=== PATIENT | male | born 1975 | race Caucasian/White ===

== ENCOUNTER → 2016-05-04 | Outpatient (CLI) | payer BC ==
[~2016-05-04] VITALS: Ht 182.9 cm; Wt 91.6 kg
[2016-05-04 14:11] VITALS: BP 116/77; PULSE 78; Ht 182.9 cm; Wt 91.6 kg
== END | disposition home or self-care (01) ==
LOC: C.NEUR 13:20
PROVIDERS: ATTEND Internal Medicine Pulmonary Disease
DX: G47.30 Sleep apnea, unspecified (principal)

== ENCOUNTER → 2016-05-18 | Outpatient (CLI) | payer BC ==
--- NOTE | 2016-05-20 16:50 | POLYSOMNOGRAPH REPORT ---
CLINICAL DATA: A 40-year-old male with BMI of 27.[address] Oneil with symptoms of obstructive sleep apnea with loud snoring which is severe and poor sleep quality. On the evening of 05/18/2016, a home sleep apnea test was performed using a iovation type 3 monitor. RECORDING RESULTS: Total recording time was 9.2 hours. The patient's estimated sleep time and monitoring time was 7.4 hours. RESPIRATORY DATA: Mild sleep apnea was documented. The ELOY was 7.2. There were 35 obstructive, 2 mixed, and 2 central apneic episodes. There were 14 hypopneic episodes. The longest respiratory event recorded was 40 seconds. OXIMETRY DATA: Very transient nocturnal hypoxemia was seen. Oxygen [place] was 82%. Mean saturation was 94%. Time below 89% was 1 minute. HEART RATE DATA: Heart rates ranged from 59 to 72 beats per minute. SNORING DATA: Loud snoring was recorded throughout the night. IMPRESSION: Mild sleep apnea/hypopnea with an ELOY of 7.2. RECOMMENDATIONS: The patient may benefit from use of an oral appliance or a repeat sleep study with CPAP. Clinical correlation is needed. GM
== END | disposition home or self-care (01) ==
LOC: C.NEUR 14:04
PROVIDERS: ATTEND Internal Medicine Pulmonary Disease
DX: G47.30 Sleep apnea, unspecified (principal)

== ENCOUNTER → 2016-06-08 | Outpatient (CLI) | payer BC ==
[~2016-06-08] VITALS: Ht 182.9 cm; Wt 92.2 kg
[2016-06-08 14:07] VITALS: BP 125/79; PULSE 76; Ht 182.9 cm; Wt 92.2 kg
== END | disposition home or self-care (01) ==
LOC: C.NEUR 13:58
PROVIDERS: ATTEND Physician Assistant
DX: G47.30 Sleep apnea, unspecified (principal)

== ENCOUNTER → 2016-10-30 | Outpatient (CLI) | payer BC ==
[~2016-10-30] VITALS: Ht 182.9 cm; Wt 91.5 kg
[2016-10-30 12:57] VITALS: BP 137/82; PULSE 89; Ht 182.9 cm; Wt 91.5 kg
== END | disposition home or self-care (01) ==
LOC: C.NEUR 12:48
PROVIDERS: ATTEND Physician Assistant
DX: G47.30 Sleep apnea, unspecified (principal)

== ENCOUNTER → 2017-05-06 | Outpatient (CLI) | payer OTHER ==
[~2017-05-06] VITALS: Ht 182.9 cm; Wt 94.8 kg
[2017-05-06 09:04] VITALS: BP 113/71; PULSE 70; Ht 182.9 cm; Wt 94.8 kg
== END | disposition home or self-care (01) ==
LOC: C.NEUR 08:25
PROVIDERS: ATTEND Internal Medicine Pulmonary Disease
DX: G47.33 Obstructive sleep apnea (adult) (pediatric) (principal)

== ENCOUNTER → 2017-09-23 | Outpatient (CLI) | payer OTHER ==
[2017-09-23 13:26] LABS: ALBUMIN 4.2 gm/dl (3.4-5.0); ALKALINE PHOSPHATASE 78 U/L (45-117); ALT/SGPT 41 U/L (12-78); AST/SGOT 22 U/L (15-37); BLOOD UREA NITROGEN 18 mg/dl (7-18); CALCIUM 9.2 mg/dl (8.5-10.1); CARBON DIOXIDE 30 mmol/L (21-32); CHOLESTEROL 165 mg/dl (0-200); CREATININE 0.95 mg/dl (0.60-1.40); GLUCOSE 91 mg/dl (70-99); LDL CHOLESTEROL CALCULATED 96 mg/dl; POTASSIUM 4.2 mmol/L (3.5-5.1); SODIUM 139 mmol/L (136-145); TOTAL PROTEIN 7.2 gm/dl (6.4-8.2)
== END | disposition home or self-care (01) ==
LOC: C.LABBC 09:05
PROVIDERS: ATTEND Internal Medicine
DX: Z00.00 Encounter for general adult medical examination without abnormal findings (principal); Z13.1 Encounter for screening for diabetes mellitus; Z82.49 Family history of ischemic heart disease and other diseases of the circulatory system